=== PATIENT | female | born 1990 | race African-American/Black ===

== ENCOUNTER 2018-06-15 18:37 | Inpatient (IN) | payer MEDICAID ==
[2018-06-15] MEDS ORDERED: NS 0.9% 1000 ML* 1,000 ML IV ONE (18:53)
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
[2018-06-15 19:25] LABS: ABS Basophils 0 10^3/ul (0-0.2); ABS Eosinophils 0.5 10^3/ul (0-0.6); ABS Monocytes 0.4 10^3/ul (0-0.8); ABS Neutrophils 4.4 10^3/ul (1.5-7.7); ABS Nucleated RBC 0 10^3/ul; Eosinophil % 7.4 % (0-6); Hematocrit 39 % (35-47); Lymphocyte % 16.7 % (25-47); Mean Corpuscular HGB Conc 34 g/dl (31-36); Mean Corpuscular Hemoglobin 30 pg (27-31); Mean Corpuscular Volume 87 fL (80-97); Mean Platelet Volume 9.4 um3 (7.4-10.4); Nucleated Red Blood Cells % 0.1; Platelet Count 148 10^3/ul (150-450); Red Blood Count 4.43 10^6/ul (4.00-5.40); Red Cell Distribution Width 14 % (10.5-15); White Blood Count 6.2 10^3/ul (3.5-10.8)
[2018-06-15 19:41] LABS: EGFR Non-African American 54.9 (>60)
[2018-06-15] MEDS ORDERED: LORazepam INJ* 2 MG/ML 1 ML VIAL ONE (19:44)
[2018-06-15] MEDS ORDERED: LORazepam INJ* 2 MG/ML 1 ML VIAL IV ONE (19:46)
[2018-06-15 23:55] LABS: Urine Appearance Cloudy; Urine Blood 2+ (Negative); Urine Color Yellow; Urine Ketones Trace (Negative); Urine Protein 1+(30 mg/dL) (Negative); Urine Red Blood Cell 3+(>10/hpf) (Absent); Urine Urobilinogen Negative (Negative); Urine White Blood Cell 3+(>20/hpf) (Absent)
--- NOTE | 2018-06-16 00:58 | PN ---
Progress Note - Progress Note Date of Service: 06/16/18 Note: Liat Barclay, scribed for Dr. Juana Hinojosa MD on 06/16/18 at 00:55. The documentation as recorded by the scribeLiat accurately reflects the service I personally performed and the decisions made by me, Dr. Juana Hinojosa MD SIGN OUT FROM DR. ANTHAN DOMÍNGUEZ MD TO DR. JUANA HINOJOSA MD AT SHIFT CHANGE PENDING DETOX AND MHE. COT: At 00:53 this date, pt is medically clear for mental health evaluation. DX: Overdose. Mental health problem. SIGN OUT TO DR. RAFAEL KAMINSKI MD AT SHIFT CHANGE PENDING MHE.
--- NOTE | 2018-06-16 07:26 | ED ---
Progress - Progress Note Progress Note: Patient is signed out from Dr. Hinojosa to Dr. Hernandez upon provider shift change pending mental health evaluation. Course/Dx - Course Course Of Treatment: Medications reviewed. Allergies noted. DISPOSITION AND MHE PENDING AT SHIFT CHANGE. Pt signed out from Dr. Nj to Dr. Hinojosa. Pt was signed out from Dr. Hinojosa to Dr. Hernandez upon provider shift change. Pt will be signed out from Dr. Hernandez to Dr. Hinojosa upon shift change pending transfer. - Diagnoses Provider Diagnoses: Bipolar disorder, unspecified Discharge - Sign-Out/Discharge Documenting (check all that apply): Sign-Out Patient Signing out patient TO: Jc Hinojosa - Discharge Plan Condition: Stable [place] [place] Disposition and Condition Condition: STABLE Disposition: Psychiatric [facility] - Attestation Statements Document Initiated by Scribe: Yes Documenting Scribe: Marina Bond Provider For Whom Scribe is Documenting (Include Credential): Darnell Hernandez MD Scribe Attestation: Marina Barclay scribed for Darnell Hernandez MD on 06/21/18 at 1234. Scribe Documentation Reviewed: Yes Provider Attestation: The documentation as recorded by the scribeMarina accurately reflects the service I personally performed and the decisions made by Darnell bridges MD
--- NOTE | 2018-06-17 05:51 | ED ---
Progress - Progress Note Progress Note: Patient was signed out to Dr. Jc Hinojosa via Dr. Darnell Hernandez, awaiting medical clearance, pending disposition at shift change on 06/16/2018 at 1900. Patient was signed out to Dr. Bouchra Patel via Dr. Jc Hinojosa, awaiting medical clearance, pending disposition at shift change on 06/17/2018 at 0700. - Consult/PCP Time Called: 01:15 Course/Dx - Course Course Of Treatment: A 28 y/o female JC presents to ED s/p questionable overdose. Upon entering ED room, the patient is obviously agitated and angry. She is uncooperative with the MD questions. No laboratory scans were done. Blood work and UA were done. An EKG revealed NSR of 91 BPM, normal ST, no ectopy. In the ED course, the patient recieved no medications. Patient was signed out to Dr. Bouchra Patel via Dr. Jc Hinojosa, awaiting medical clearance, pending disposition at shift change on 06/17/2018 at 0700. Discharge - Sign-Out/Discharge Documenting (check all that apply): Sign-Out Patient Signing out patient TO: Bouchra Patel Receiving patient FROM: Jc Hinojosa - Discharge Plan Condition: Stable Referrals: No Primary Care Phys,NOPCP [Primary Care Provider] - - Attestation Statements Document Initiated by Scribe: Yes Documenting Scribe: Fuad Sparks Provider For Whom Scribe is Documenting (Include Credential): Jc Hinojosa Scribe Attestation: Fuad Barclay, scribed for Jc Hinojosa on 06/17/18 at 0644.
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
[2018-06-17] MEDS ORDERED: Nicotine Inhaler* 10 MG AMP INH PRN (08:12)
[2018-06-17] MEDS ORDERED: Mouth Piece, Nicotine* 1 EACH CARTRIDGE INH PRN ×2 (08:12)
[2018-06-17] MEDS ORDERED: Acetaminophen TAB* 325 MG PO PRN (10:53)
[2018-06-17] MEDS ORDERED: Al Hydrox/Mg Hydrox/Simet LIQ* 30 ML UDC PO PRN (10:53)
[2018-06-17] MEDS: hydrOXYzine HCL TAB* 50 MG PO PRN (15:14)
[2018-06-17] MEDS ORDERED: QUEtiapine TAB* 100 MG PO SCH (21:00)
[2018-06-17] MEDS: Divalproex DR TAB(*) 500 MG PO SCH (21:12)
[2018-06-18] MEDS: Divalproex DR TAB(*) 500 MG PO SCH ×2 (08:07→20:01)
--- NOTE | 2018-06-18 12:07 | PN ---
MHU: Group Therapy Note - Service Type Service Type: [id number] Group Psychotherapy - Cognitive Behavioral Group Therapy ( CBT):Patient was attentive and participatory in CBT programming this morning, and remained in good behavioral control. Patient expressed positive insights regarding relevant treatment interventions and goals.
[2018-06-18] MEDS ORDERED: QUEtiapine TAB* 25 MG PO PRN (14:39)
--- NOTE | 2018-06-18 15:42 | HP ---
H&P (Free Text) History and Physical: JUSTIFICATION FOR ADMISSION: Patient presented to emergency room with suicidal attempt via overdose, abusing substances, worsening depression and multiple psychosocial stressors. She requires inpatient psychiatric admission in order to provide treatment and stabilization as she is a danger to herself. Source of information: Patient and chart review CHIEF COMPLAINT: "I want to do a rehab program HISTORY OF THE PRESENT ILLNESS: Patient is a 28 y/o female, single, was living with her boyfriend, never employed, with history of unspecified Mood symptoms and heavy substance abuse. Patient was admitted to inpatient unit for worsening of her substance abuse and relationship difficulty with her boyfriend that lead to her suicidal attempt via overdose of 27 tablets of her own Seroquel 200 mg. Patient later presented to the hospital for treatment. Patient did not show any EKG changes that were concerning. As per poison control recommendations patient was observed for few hours and then was medically cleared to be transferred. Patient has been non- compliant with her treatment for last 6 months since she came to [place], [place] with her boyfriend. Patient reportedly has been self-medicating herself with marijuana and cocaine. Patient reports manic symptoms of increase, energy, euphoria, and decrease sleep, impulsive behavior, easily distractible, flight of ideas and depressive symptoms of feeling down and depressed with anxiety but still portray her self being happy. Patient reports no psychotic symptoms of delusion or hallucination. Patient denied any suicidal or homicidal ideation on the unit. Patient continued to exhibit behavior that is in control and following redirections from the staff. Patient on the unit is highly energetic, with tangential thoughts and flight of ideas, impulsive and in euphoric mood. PAST PSYCHIATRIC HISTORY: Patient has history of no inpatient psychiatric hospitalization. Patient reports self-medicating her symptoms with drugs since age of 13 and did not start any treatment until a year ago. Patient has history of outpatient psychiatric treatment that started about a year ago and was taking Depakote, Seroquel and also reports taking Adderall for ?ADHD. Patients report no side effects to medications. Patient has been in no inpatient or outpatient drug treatment. Patient has history of suicidal thoughts and planned to jump out of the window when around 6 and 11 but mother was able to intervene and did not attempt. Patient has reported no history of homicidal ideation or attempt but in the records she had mentioned about killing two of her babys daddies. Patient has history of aggressive and agitated behavior when decompensates. Patient has history of multiple arrest and legal charges but no current pending charges. No access to firearm reported. SUBSTANCE ABUSE HISTORY: Patient uses cocaine and marijuana variable doses. Patient reports that she can use about an ounce of marijuana in 2 days. Urine toxicology was positive for both cocaine and cannabis. Last use was before presenting to [facility]. Patient has been in no inpatient and outpatient treatment for drugs but showing interest and attending groups. Patient reports being abstinent for about 3 years from heavy drugs before she relapses about 6 months ago. But did not report any clean period from marijuana and showed little interest in quitting that. PAST MEDICAL HISTORY: No active medical problems ALLERGIES: [facility] FAMILY PSYCHIATRIC HISTORY: Patient has family history of ?Bipolar Disorder in her father as per patient. Patient has history of alcohol and substance abuse in family. Patient reported no suicide in the family. FAMILY/PSYCHOSOCIAL HISTORY: Patient currently lives with her boyfriend and is planning to return to him after treatment. Patient has 6 children but does not have custody of any. Patient reports her three children are adopted outside the family. Patients first was when she was 11 and was in a relationship with a 30 year old. Patient completed 11th grade but due to her behavior, substance abuse and getting in her teen age year was unable to pursue further education. Patient was raised by her mother and reports having estranged relationship with father and endorsed that he was never there during her upbringing. Patient support system includes her mother and her boyfriend. REVIEW OF SYSTEMS: Patients review of symptoms was negative for any physical complaint other than some discomfort during urination. But patient has been cooperative on the unit and vital signs are stable. Patients ED physical exam was reviewed which is grossly normal with no active medical problem. General: well-appearing, no pain distress, patient is agitated. Skin: warm, color reflects adequate perfusion, dry Head: normal Eyes: EOMI, JERRY ENT: normal Neck: supple, nontender Respiratory: CTA, breath sounds present Cardiovascular: RRR Abdomen: soft, nontender Bowel: present Musculoskeletal: normal, strength/ROM intact Neurological: sensory/motor intact, A&O x3 MENTAL STATUS EXAMINATION: Appearance: 28 year old female, appear stated ae, hyperactive, making fair but intermittent eye contact, easily distracted, fair hygiene and appropriate grooming. Behavior: in better control following redirections Gait: normal Abnormal motor activity: none Speech: normal tone and volume, increase rate normal rhythm Mood: happy Affect: euphoric, labile Thought process: tangential to circumstantial Thought Content: Suicidal/Homicidal ideation: denied Delusions: none Obsessions: none Phobia: none Perceptual disturbance: none Attention: fair Orientation: grossly intact Concentration: limited Memory: fair Insight: poor as per recent evidence Judgment: poor as per recent evidence Impulse control: poor as per recent evidence IMPRESSION: Patient with history of unspecified mood disorder and heavy substance abuse. Patient currently admitted due to impulsive suicidal attempt after recent conflict with her boyfriend. Patient has also struggled with her relapse on drugs and using cocaine with her marijuana. Patient is a danger to self if discharged hence will be stabilized on inpatient unit with medication adjustments and therapy. DIAGNOSES: Bipolar Disorder Unspecified, Cocaine Use Disorder, Cannabis Use Disorder PLAN: Admit to [facility] on Q 15 min observation. Patient is full code. Patient is on involuntary admission status Integrate patient into the milieu individual and group psychotherapy MMPI and psychological consult with Dr. Sanchez. Social work consult for therapy and discharge planning Patient gave informed consent to start the following medications: Depakote was kept at 500mg BID for mood stabilization. Also started Clonidine 0.1 mg BID to help with hyperactivity, restlessness and impulsivity. Continue with Hydroxyzine 50 mg PO Q4HRS PRN for anxiety. Will reduce Seroquel to 50 mg prn at bedtime for insomnia. Also discussed with hospitalist about her urinalysis and culture and some symptom of feeling discomfort. As per recommendations Keflex 500mg Q12 HRS was started for 3 days Will continue to monitor and f/u for improvement and side effects. Saulo Luna MD Attending Psychiatrist
--- NOTE | 2018-06-18 16:01 | PN ---
MHU: Group Therapy Note - Service Type Service Type: [id number] Group Psychotherapy - Medication Education Group: Patient presented as disorganized and disruptive in discussion and needed repeated redirection to attend to presented materials. Patient was distractible and left within minutes of joining group.
[2018-06-18] MEDS: Naproxen TAB* 250 MG PO PRN (18:07)
[2018-06-18] MEDS: Cephalexin CAP* 500 MG PO SCH (20:01)
[2018-06-18] MEDS: cloNIDine TAB* 0.1 MG PO SCH (20:01)
[2018-06-18] MEDS: hydrOXYzine HCL TAB* 50 MG PO PRN (22:37)
[2018-06-19] MEDS: Cephalexin CAP* 500 MG PO SCH ×2 (08:44→21:07)
[2018-06-19] MEDS: cloNIDine TAB* 0.1 MG PO SCH ×2 (08:45→21:07)
[2018-06-19] MEDS: hydrOXYzine HCL TAB* 50 MG PO PRN (08:45)
[2018-06-19] MEDS: Divalproex DR TAB(*) 500 MG PO SCH (08:45)
[2018-06-19] MEDS ORDERED: hydrOXYzine HCL TAB* 25 MG PO PRN (12:10)
[2018-06-19] MEDS ORDERED: QUEtiapine TAB* 25 MG PO PRN (12:10)
--- NOTE | 2018-06-19 12:14 | PN ---
Subjective - Subjective Date of Service: 06/19/18 Service Type: [id number] Hosp care 15 min low complexity Subjective: Patient was seen by self, discussed with treatment team, chart was reviewed. Patient has been compliant with her medications, no reported side effects other than some reduction in blood pressure and feelings slow this morning. Patient reports improvement in her mood symptoms, also hyperactivity and impulsivity and ability to concentrate. Patient sleeping has been better. Patient eating has been fair. Patient has been cooperative with staff. Patient behavior has been in better control today. Patient mood was less anxious and euphoric and reports improvement in racing thoughts. Patient has been reporting no suicidal or homicidal ideation. No psychotic symptoms of delusions or hallucinations. Objective - Appearance Appearance: Thin Framed Dysmorphic Features: No Hygiene: Normal Grooming: Fairly Well Kept - Behavior Psychomotor Activities: Normal Exhibits Abnormal Movement: No - Attitude and Relatedness Attitude and Relatedness: Cooperative Eye Contact: Fair - Speech Quality: Unpressured Latencies: Normal Quantity: Appropriate - Mood Patient's Decription of Mood: "Okay" - Affect Observed Affect: Constricted Affect Consistent with: Euphoria - less - Thought Process Patient's Thought Process: Goal Directed, Circumstantial Thought Content: No Passive Wish, No Suicidal Planning, No Homicidal Ideation, No Paranoid Ideation - Sensorium Experiencing Hallucinations: No, Sensorium is Clear Type of Hallucinations: Visual: No, Auditory: No, Command: No - Level of Consciousness Level of Consciousness: Alert Orientation: Yes Intact, Yes Orientated to Time, Yes Orientated to Place, Yes Orientated to Person - Impulse Control Impulse Control: Impaired - but improving - Insight and Judgement Insight and Judgement: Poor - but improving - Group Participation Particating in Group Activities: Yes - Medication Management Medication Management Adherence: Yes Assessment - Assessment Merits Inpatient Hospitalization: For Immediate Safety, For Stabilization, For Discharge Planning Inpatient DSM-V Dx: F31.9 Clinical Impression: Patient with history of unspecified mood disorder and heavy substance abuse. Patient currently admitted due to impulsive suicidal attempt after recent conflict with her boyfriend. Patient has also struggled with her relapse on drugs and using cocaine with her marijuana. Patient is a danger to self if discharged hence will be stabilized on inpatient unit with medication adjustments and therapy. Plan - Plan Treatment Plan: Name: JOSE DIAZ Birthdate: 1990 [id number] - Patient continues to be hospitalized due to recent suicidal attempt, mood instability, anxiety and impulsivity. - Patient's medications were adjusted after informed consent with switching of Depakote ER to 1000mg HS. Patient Clonidine was continued at 0.1 mg BID. Hydroxyzine was reduced to 25 mg PO Q8HRS PRN anxiety. Patient Seroquel was reduced to 25 mg HS. - Patient will be monitored for improvement and side effects. Risk and benefits were discussed. - Patient was encouraged to continue his participation in the milieu, group and individual therapy. -Patient in the process of being referred to a substance abuse treatment. Medications: Current Medications Acetaminophen (Tylenol Tab*) 650 mg PO Q4H PRN PRN Reason: for pain; or Temp >101 F Al Hydrox/Mg Hydrox/Simethicone (Maalox Plus*) 30 ml PO Q4H PRN PRN Reason: INDIGESTION Last Admin: 06/18/18 07:20 Dose: 30 ml Cephalexin HCl (Keflex Cap*) 500 mg PO BID GINA Stop: 06/21/18 09:01 Last Admin: 06/19/18 08:44 Dose: 500 mg Clonidine HCl (Catapres Tab*) 0.1 mg PO BID GINA Last Admin: 06/19/18 08:45 Dose: 0.1 mg Device (Nicotine Mouth Piece*) 1 each INH .USE WITH NICOTROL PRN PRN Reason: CRAVING Last Admin: 06/18/18 08:07 Dose: 1 each Device (Nicotine Mouth Piece*) 1 each INH .USE WITH NICOTROL PRN PRN Reason: CRAVING Last Admin: 06/17/18 12:59 Dose: 1 each Divalproex Sodium (Depakote Er Tab(*)) 1,000 mg PO BEDTIME GINA Hydroxyzine HCl (Atarax Tab*) 25 mg PO Q8H PRN PRN Reason: ANXIETY Naproxen (Naprosyn Tab*) 500 mg PO Q12H PRN PRN Reason: PAIN Last Admin: 06/18/18 18:07 Dose: 500 mg Nicotine (Nicotine Inhaler*) 10 mg INH Q2H PRN PRN Reason: CRAVING Last Admin: 06/17/18 12:59 Dose: 10 mg Quetiapine Fumarate (Seroquel Tab*) 25 mg PO BEDTIME PRN PRN Reason: insomnia
[2018-06-19] MEDS ORDERED: Divalproex ER TAB(*) 500 MG PO SCH (21:00)
[2018-06-20 07:55] VITALS: BP 115/62
[2018-06-20] MEDS: cloNIDine TAB* 0.1 MG PO SCH (08:46)
[2018-06-20] MEDS: Cephalexin CAP* 500 MG PO SCH (08:46)
[2018-06-20] MEDS: Naproxen TAB* 250 MG PO PRN (08:47)
--- NOTE | 2018-06-20 15:11 | DS ---
Subjective - Subjective Service Types: [address] [facility] simple under 30 min Discharge Date: 06/20/18 Subjective: JUSTIFICATION FOR ADMISSION: Patient presented to emergency room with suicidal attempt via overdose, abusing substances, worsening depression and multiple psychosocial stressors. She requires inpatient psychiatric admission in order to provide treatment and stabilization as she is a danger to herself. Source of information: Patient and chart review CHIEF COMPLAINT: "I want to do a rehab program HISTORY OF THE PRESENT ILLNESS: Patient is a 28 y/o female, single, was living with her boyfriend, never employed, with history of unspecified Mood symptoms and heavy substance abuse. Patient was admitted to inpatient unit for worsening of her substance abuse and relationship difficulty with her boyfriend that lead to her suicidal attempt via overdose of 27 tablets of her own Seroquel 200 mg. Patient later presented to the hospital for treatment. Patient did not show any EKG changes that were concerning. As per poison control recommendations patient was observed for few hours and then was medically cleared to be transferred. Patient has been non- compliant with her treatment for last 6 months since she came to [place], [place] with her boyfriend. Patient reportedly has been self-medicating herself with marijuana and cocaine. Patient reports manic symptoms of increase, energy, euphoria, and decrease sleep, impulsive behavior, easily distractible, flight of ideas and depressive symptoms of feeling down and depressed with anxiety but still portray her self being happy. Patient reports no psychotic symptoms of delusion or hallucination. Patient denied any suicidal or homicidal ideation on the unit. Patient continued to exhibit behavior that is in control and following redirections from the staff. Patient on the unit is highly energetic, with tangential thoughts and flight of ideas, impulsive and in euphoric mood. PAST PSYCHIATRIC HISTORY: Patient has history of no inpatient psychiatric hospitalization. Patient reports self-medicating her symptoms with drugs since age of 13 and did not start any treatment until a year ago. Patient has history of outpatient psychiatric treatment that started about a year ago and was taking Depakote, Seroquel and also reports taking Adderall for ?ADHD. Patients report no side effects to medications. Patient has been in no inpatient or outpatient drug treatment. Patient has history of suicidal thoughts and planned to jump out of the window when around 6 and 11 but mother was able to intervene and did not attempt. Patient has reported no history of homicidal ideation or attempt but in the records she had mentioned about killing two of her babys dadsekou. Patient has history of aggressive and agitated behavior when decompensates. Patient has history of multiple arrest and legal charges but no current pending charges. No access to firearm reported. SUBSTANCE ABUSE HISTORY: Patient uses cocaine and marijuana variable doses. Patient reports that she can use about an ounce of marijuana in 2 days. Urine toxicology was positive for both cocaine and cannabis. Last use was before presenting to [facility]. Patient has been in no inpatient and outpatient treatment for drugs but showing interest and attending groups. Patient reports being abstinent for about 3 years from heavy drugs before she relapses about 6 months ago. But did not report any clean period from marijuana and showed little interest in quitting that. PAST MEDICAL HISTORY: No active medical problems ALLERGIES: [facility] FAMILY PSYCHIATRIC HISTORY: Patient has family history of ?Bipolar Disorder in her father as per patient. Patient has history of alcohol and substance abuse in family. Patient reported no suicide in the family. FAMILY/PSYCHOSOCIAL HISTORY: Patient currently lives with her boyfriend and is planning to return to him after treatment. Patient has 6 children but does not have custody of any. Patient reports her three children are adopted outside the family. Patients first was when she was 11 and was in a relationship with a 30 year old. Patient completed 11th grade but due to her behavior, substance abuse and getting in her teen age year was unable to pursue further education. Patient was raised by her mother and reports having estranged relationship with father and endorsed that he was never there during her upbringing. Patient support system includes her mother and her boyfriend. REVIEW OF SYSTEMS: Patients review of symptoms was negative for any physical complaint other than some discomfort during urination. But patient has been cooperative on the unit and vital signs are stable. Patients ED physical exam was reviewed which is grossly normal with no active medical problem. General: well-appearing, no pain distress, patient is agitated. Skin: warm, color reflects adequate perfusion, dry Head: normal Eyes: EOMI, JERRY ENT: normal Neck: supple, nontender Respiratory: CTA, breath sounds present Cardiovascular: RRR Abdomen: soft, nontender Bowel: present Musculoskeletal: normal, strength/ROM intact Neurological: sensory/motor intact, A&O x3 MENTAL STATUS EXAMINATION ON ADMISSION: Appearance: 28 year old female, appear stated age, hyperactive, making fair but intermittent eye contact, easily distracted, fair hygiene and appropriate grooming. Behavior: in better control following redirections Gait: normal Abnormal motor activity: none Speech: normal tone and volume, increase rate normal rhythm Mood: happy Affect: euphoric, labile Thought process: tangential to circumstantial Thought Content: Suicidal/Homicidal ideation: denied Delusions: none Obsessions: none Phobia: none Perceptual disturbance: none Attention: fair Orientation: grossly intact Concentration: limited Memory: fair Insight: poor as per recent evidence Judgment: poor as per recent evidence Impulse control: poor as per recent evidence DIAGNOSES ON ADMISSION: Bipolar Disorder Unspecified, Cocaine Use Disorder, Cannabis Use Disorder DIAGNOSES ON DISCHARGE: Bipolar Disorder Unspecified, Cocaine Use Disorder, Cannabis Use Disorder Objective - Appearance Appearance: Healthy Appearing, Thin Framed Dysmorphic Features: No Hygiene: Normal Grooming: Fairly Well Kept - Behavior Psychomotor Activities: Normal Exhibits Abnormal Movement: No - Attitude and Relatedness Attitude and Relatedness: Cooperative Eye Contact: Fair - Speech Quality: Unpressured Latencies: Normal Quantity: Appropriate - Mood Patient's Decription of Mood: "Fine" - Affect Observed Affect: Fair Affect Consistent with: Euthymia - Thought Process Patient's Thought Process: Coherent Thought Content: No Passive Wish, No Suicidal Planning, No Homicidal Ideation, No Paranoid Ideation - Sensorium Experiencing Hallucinations: No, Sensorium is Clear Type of Hallucinations: Visual: No, Auditory: No, Command: No - Level of Consciousness Level of Consciousness: Alert Orientation: Yes Intact, Yes Orientated to Time, Yes Orientated to Place, Yes Orientated to Person - Impulse Control Impulse Control: Intact - Insight and Judgement Insight and Judgement: Fair - Group Participation Particating in Group Activities: Yes - Medication Management Medication Management Adherence: Yes Treatment Course & Assessment Clinical Course & Impression: Patient is 28 y/o female with history of unspecified mood disorder and heavy substance abuse. Patient currently admitted due to impulsive suicidal attempt after recent conflict with her boyfriend. Patient has also struggled with her relapse on drugs and using cocaine with her marijuana. Patient was a danger to self if discharged hence was stabilized on inpatient unit with medication adjustments and therapy. Patient was admitted to [facility] on Q 15 min observation. Patient was on involuntary admission status. Patient was integrate into the milieu and therapy. Patient gave informed consent to continue Depakote at 500mg BID for mood stabilization. Also started Clonidine 0.1 mg BID to help with hyperactivity, restlessness and impulsivity. Continue with Hydroxyzine 50 mg PO Q4HRS PRN for anxiety. Will reduce Seroquel to 50 mg prn at bedtime for insomnia. Also discussed with hospitalist about her urinalysis and culture and some symptom of feeling discomfort. As per recommendations Keflex 500mg Q12 HRS was started for 3 days. Patient was monitor and followed up for improvement and side effects. Patient initially presented as disorganized and disruptive in discussion and needed repeated redirection to attend to presented materials. Patient was easily distractible, impulsive and restless. Patient was compliant with her medications, no reported side effects other than some reduction in blood pressure and feelings slow in the morning. Patient reported improvement in her mood symptoms, also hyperactivity and impulsivity and ability to concentrate. Patient sleeping was better. Patient eating has been fair. Patient was more cooperative with staff. Patient behavior was in better control. Patient mood was less anxious and euphoric and reports improvement in racing thoughts. Patient was reporting no suicidal or homicidal ideation. No psychotic symptoms of delusions or hallucinations. Patient was able to meet with her boyfriend to dissolve the conflict and felt better. Patient was looking forward to her child' s birthday. Patient's medications were adjusted after informed consent with switching of Depakote to ER 1000mg HS. Patient Clonidine was continued at 0.1 mg BID. Hydroxyzine was reduced to 25 mg PO Q8HRS PRN anxiety. Patient Seroquel was reduced to 25 mg HS with plan to discontinue. Patient was in the process of being referred to a substance abuse treatment. Patient was doing better, symptoms resolved. Patient mood was stable, no si/hi, no psychotic symptoms reported. patient was compliant with her medication and wanted to follow up outpatient. Patient offered voluntary stay but wanted to be discharged. Patient was discussed with team, did not meet criteria for involuntary hospitalization hence was discharged. Patient was offered inpatient rehab but wanted to go to any outpaitent substance abuse treatment hence discharged with outpatient appointments. Merits Inpatient Hospitalization: No Clear for Discharge: Adequate Clinical Respons, Acceptable Safety Profile, Low Utility of Inpt Care Inpatient DSM-V Dx: F31.9 Discharge Planning - Discharge Planning Discharge Plan: Outpatient Follow Up Recommendations for Continuing Care: Medication Management, Psychotherapy, Substance Abuse Counseling Medications: Cephalexin HCl (Keflex Cap*) 500 mg PO BID [facility] #2 tablets Stop: 06/21/18 09:01 Last Admin: 06/19/18 08:44 Dose: 500 mg Clonidine HCl (Catapres Tab*) 0.1 mg PO BID [facility] #28 tablets Last Admin: 06/19/18 08:45 Dose: 0.1 mg Divalproex Sodium (Depakote Er Tab(*)) 1,000 mg PO BEDTIME [facility] #14 tablets Discharge Planning: Prescriptions provided for discharge [] Yes [] No Follow up care details as per social work arrangements. Patient response to discharge plan: [] eager for discharge [] agreeable with discharge plan [] ambivalent about discharge [] disagrees with discharge today
== END 2018-06-20 10:30 | disposition home or self-care (01) | DRG 753 ==
LOC: ED 18:37 → BSU 06-17 11:01
PROVIDERS: ADMIT Psychiatry & Neurology Psychiatry; ATTEND Psychiatry & Neurology Psychiatry
PROC: GZHZZZZ Group Psychotherapy (ICD-10-PCS; principal; 2018-06-18)
DX: F31.9 Bipolar disorder, unspecified (principal); T43.592A Poisoning by other antipsychotics and neuroleptics, intentional self-harm, initial encounter; F41.9 Anxiety disorder, unspecified; F14.90 Cocaine use, unspecified, uncomplicated; F12.90 Cannabis use, unspecified, uncomplicated; G47.00 Insomnia, unspecified; F17.210 Nicotine dependence, cigarettes, uncomplicated; Z72.89 Other problems related to lifestyle; Z23 Encounter for immunization; Y92.009 Unspecified place in unspecified non-institutional (private) residence as the place of occurrence of the external cause; Z91.19 Patient's noncompliance with other medical treatment and regimen; Z81.8 Family history of other mental and behavioral disorders; Z81.1 Family history of alcohol abuse and dependence; Z81.4 Family history of other substance abuse and dependence
CPT/HCPCS: 36415; 80053; 80061; 80307; 80320; 80329; 81003; 81015; 82550; 83036; 83605; 84443; 84702; 85025; 87077; 87086; 87186; 90686; 90853; 93005; 99222; 99231; 99238; 99284; A9270-GY; G0480; J2060